=== PATIENT | female | born 1955 | race Caucasian/White ===

== ENCOUNTER 2019-09-17 10:08 | Emergency (ER) | payer OTHER ==
[~2019-09-17] VITALS: Ht 198.1 cm; Wt 72.6 kg
[2019-09-17 10:18] VITALS: BP 125/79
[2019-09-17] MEDS ORDERED: ACETAMINOPHEN 500 MG TAB PO ONE (11:00)
== END 2019-09-17 11:06 | disposition home or self-care (01) ==
LOC: ER 10:08
DX: S63.287A Dislocation of proximal interphalangeal joint of left little finger, initial encounter (principal); V19.9XXA Pedal cyclist (driver) (passenger) injured in unspecified traffic accident, initial encounter; Y93.H3 Activity, building and construction; Y92.89 Other specified places as the place of occurrence of the external cause; Y99.8 Other external cause status
CPT/HCPCS: 26770; 73130

== ENCOUNTER 2023-01-13 22:42 | Emergency (ER) | payer MEDICARE, OTHER ==
[~2023-01-13] VITALS: Ht 167.6 cm; Wt 68.0 kg
[2023-01-13] MEDS ORDERED: IBUPROFEN 600 MG TAB PO ONE (23:00)
[2023-01-13 23:12] VITALS: TEMP 97.6
[2023-01-14] MEDS ORDERED: fentaNYL CITRATE 100 MCG/2 ML VL IV ONE (01:45)
[2023-01-14] MEDS ORDERED: ONDANSETRON HCL 4 MG/2 ML VIAL IV ONE (01:45)
[2023-01-14 02:00] VITALS: O2SAT 94
[2023-01-14] MEDS ORDERED: ACE3T PO (02:19)
[2023-01-14 02:24] VITALS: BP 110/64; PULSE 77; RESP 17
== END 2023-01-14 02:55 | disposition home or self-care (01) ==
LOC: ER 22:42
DX: S52.531A Colles' fracture of right radius, initial encounter for closed fracture (principal); J45.909 Unspecified asthma, uncomplicated; W10.8XXA Fall (on) (from) other stairs and steps, initial encounter; Y93.89 Activity, other specified; Y92.89 Other specified places as the place of occurrence of the external cause; Y99.8 Other external cause status
CPT/HCPCS: 25605; 73080; 73100; 73110; 73502; 96374; 96375; 99284; J2405; J3010